=== PATIENT | male | born 1960 | race Caucasian/White ===

== ENCOUNTER 2019-02-03 04:20 | Emergency (ER) | payer OTHER ==
--- NOTE | 2019-02-03 04:23 | ED Physician Documentation ---
PD HPI ABD PAIN - Stated complaint Stated Complaint: PREV AB PX - History obtained from History obtained from: Patient - History of Present Illness Timing - onset: How many hours ago (3), Today Timing - duration: Hours (3) Timing - details: Abrupt onset (onset of pain left lower abd promptly and increased over an hour and remained markedly painful, then intensified more about an hour ago. Finally decided to come to ER. Enroute he sudenly felt much better and has minimal pain on checking in and pain gone by time of my exam (just few minutes after he got to room).) Quality: Aching, Sharp, Pain Location: LLQ Radiation: Left flank Improved by: No: Eating, Laying still, Position Worsened by: No: Eating, Moving, Breathing, Palpation Associated symptoms: Nausea, Vomiting. No: Fever, Diarrhea, Constipation, Dysuria, Near syncope / syncope Similar symptoms before: Has not had sx before Recently seen: Not recently seen Review of Systems Constitutional: denies: Fever, Chills, Myalgias Nose: denies: Rhinorrhea / runny nose, Congestion Throat: denies: Sore throat Respiratory: denies: Cough GI: reports: Abdominal Pain, Nausea, Vomiting. denies: Abdominal Swelling, Constipation, Diarrhea : denies: Dysuria, Frequency, Hematuria Skin: denies: Rash Musculoskeletal: reports: Back pain. denies: Neck pain Neurologic: denies: Generalized weakness, Focal weakness, Numbness, Near syncope, Syncope, Headache PD PAST MEDICAL HISTORY - Past Medical History Cardiovascular: None Respiratory: None Neuro: None Endocrine/Autoimmune: None GI: None : None - Present Medications Home Medications: Ambulatory Orders Medication Instructions Recorded Confirmed Aspirin [Adult Low Dose Aspirin EC] 81 mg PO DAILY 02/03/19 02/03/19 Hydrocodone/Acetaminophen [[place] 1 each PO Q6H PRN #15 tablet 02/03/19 5-325 Tablet] Naproxen 500 mg PO BID #20 tablet 02/03/19 - Allergies Allergies/Adverse Reactions: Allergies Allergy/AdvReac Type Severity Reaction Status Date / Time erythromycin base Allergy Emesis Verified 02/03/19 04:26 Iodinated Contrast- Oral and Allergy Anaphylaxis Verified 02/03/19 04:26 IV Dye PD ED PE NORMAL - Vitals Vital signs reviewed: Yes - General General: Alert and oriented X 3, No acute distress, Well developed/nourished - Neck Neck: Supple, no meningeal sign, No adenopathy - Cardiac Cardiac: RRR, No murmur - Respiratory Respiratory: Clear bilaterally - Abdomen Abdomen: Normal bowel sounds, Soft, Non tender - Male Male : Deferred - Rectal Rectal: Deferred - Back Back: No CVA TTP - Derm Derm: Normal color, Warm and dry - Neuro Neuro: Alert and oriented X 3, No motor deficit, Normal speech Results - Vitals Vitals: Vital Signs - 24 hr 02/03/19 04:22 Temperature 36.4 C L Heart Rate 60 Respiratory 18 Rate Blood Pressure 130/80 O2 Saturation 100 Oxygen O2 Source Room air - Labs Labs: Laboratory Tests 02/03/19 04:30 Urine Color YELLOW Urine Clarity CLEAR Urine pH 6.0 Ur Specific [place] 1.020 Urine Protein TRACE Urine Glucose (UA) NEGATIVE Urine Ketones TRACE Urine Occult Blood LARGE H Urine Nitrite NEGATIVE Urine Bilirubin NEGATIVE Urine Urobilinogen 0.2 (NORMAL) Ur Leukocyte Esterase NEGATIVE Urine RBC TNTC H Urine WBC 0-3 Ur Squamous Epith Cells RARE Squamous Urine Bacteria Rare Urine Mucus Few Strands Ur Microscopic Review INDICATED Urine Culture Comments NOT INDICATED PD MEDICAL DECISION MAKING - ED course Complexity details: reviewed results, considered differential (Sounds likely to have been/or is kidney stone, with the quickly escalating pain, nausea, and location, then with promptly resolution and no pain/tenderness now, along with some blood in urine. ), d/w patient Departure - Departure Disposition: 01 Home, Self Care Clinical Impression: Abdominal pain Qualifiers: Abdominal location: left lower quadrant Qualified Code(s): R10.32 - Left lower quadrant pain Condition: Stable Record reviewed to determine appropriate education?: Yes Health Concerns: left abd pain Plan of Treatment: Ibuprofen or pain med if recurrent pain Care Goals: resolution of symptoms Assessment: This sounds likely to be a kidney stone given the description of the pain and resolution as well as some blood in your urine Instructions: ED Stone Renal Passed Follow-Up: Julio Shi ND [Primary Care Provider] - Prescriptions: Hydrocodone/Acetaminophen [[place] 5-325 Tablet] 1 each PO Q6H PRN #15 tablet PRN Reason: Pain Naproxen 500 mg PO BID #20 tablet Comments: Seems likely that you had a kidney stone and I presume passed it given the resolution of your symptoms. Sometimes it is just in a dormant place where the urine is flowing well and just temporarily improved. We will send you home with some pain medicine and prescriptions in case you have recurrence of the symptoms. Given how you are feeling at this point, I think it is most likely actually just done. Discharge Date/Time: 02/03/19 05:11
[2019-02-03 04:27] VITALS: BP 130/80
[2019-02-03 04:55] LABS: BILIRUBIN,URINE NEGATIVE (NEGATIVE); GLUCOSE, URINE (UA) NEGATIVE (NEGATIVE); KETONES,URINE (UA) TRACE mg/dL (NEGATIVE); LEUKOCYTE ESTERASE, URINE NEGATIVE (NEGATIVE); NITRITE,URINE NEGATIVE (NEGATIVE); OCCULT BLOOD,URINE LARGE (NEGATIVE); PROTEIN,URINE TRACE mg/dL (NEGATIVE); UROBILINOGEN,URINE 0.2 (NORMAL) E.U./dL (NORMAL)
[2019-02-03 04:57] LABS: CLARITY,URINE CLEAR (CLEAR)
[2019-02-03] MEDS ORDERED: HYDROcod/ACET 5/325 Prepack 4 PO STA (04:58)
[2019-02-03 05:01] LABS: BACTERIA,URINE Rare /HPF (None Seen); MUCUS,URINE Few Strands; RBC,URINE TNTC /HPF (0-5); SQUAMOUS EPITHELIAL CELL,UR RARE Squamous (<= Few)
== END 2019-02-03 05:11 | disposition home or self-care (01) ==
LOC: ED 04:20
DX: R10.32 Left lower quadrant pain (principal)
CPT/HCPCS: 81001; 81003; 87086; 99283